=== PATIENT | male | born 1980 | race Caucasian/White ===

== ENCOUNTER 2017-01-17 09:19 | Emergency (ER) | payer MEDICAID ==
[~2017-01-17] VITALS: Ht 165.1 cm; Wt 91.5 kg
[~2017-01-17 09:19] MED LIST: ASPI81TA3 PO; CIPR500T4 PO; GEMF600T PO; MTF1000T PO
[2017-01-17 09:21] VITALS: Ht 165.1 cm; Wt 91.5 kg
[2017-01-17] MEDS ORDERED: DIPHENHYDRAMINE 50 MG INJ IV STA (09:30)
[2017-01-17] MEDS ORDERED: SOD CHLORIDE 0.9% 1,000 ML IV STA (09:30)
[2017-01-17] MEDS ORDERED: METOCLOPRAMIDE 10 MG INJ IV STA (09:30)
--- NOTE | 2017-01-17 10:12 | ERD ---
ER Documentation Chief Complaint Date/Time DATE: 01/17/17 TIME: 10:11 Chief Complaint SEVERE HEADACHE X 3 DAYS ; HAD A STROKE LAST SEPTEMBER 2015 HPI This is a 36-year-old male with history of a right internal capsule stroke, ischemic, proximally 1 year ago who has been noncompliant with his hypertension , diabetes and hyperlipidemia medications for at least 3-4 months. The patient presents with a headache for 3 days. He describes left sided headache that is throbbing, gradual in onset with associated nausea. He denies any sudden onset of pain, no numbness or tingling, no motor weakness. No vision changes. ROS All systems reviewed and are negative except as per history of present illness. Medications Home Meds Active Scripts Acetamin/Butalbital/Caffeine* (Fioricet*) [id number] Tab, 1 TAB PO Q6H Y for PAIN, #30 TAB Prov:STACEY WILLIAMSON MD 01/17/17 Ciprofloxacin Hcl* (Ciprofloxacin Hcl*) 500 Mg Tab, 500 MG PO BID@06,18 for 14 Days, TAB Prov:HALL,MARIO V. DRYER OPERATOR 10/02/15 Aspirin (Aspirin) 81 Mg Chew, 81 MG PO DAILY for 30 Days, TAB Prov:HALL,MARIO V. DRYER OPERATOR 10/02/15 Metformin* (Glucophage*) 1,000 Mg Tablet, 1000 MG PO BID, #60 TAB Prov:HALL,MARIO V. DRYER OPERATOR 10/02/15 Gemfibrozil* (Lopid*) 600 Mg Tab, 600 MG PO BID for 30 Days, TAB Prov:HALL,MARIO V. DRYER OPERATOR 10/02/15 Allergies Allergies: Coded Allergies: No Known Allergy (Unverified , 09/27/15) PMhx/Soc History of Surgery: No Anesthesia Reaction: No Hx Neurological Disorder: No Hx Respiratory Disorders: No Hx Cardiac Disorders: Yes (CVA, HTN) Hx Psychiatric Problems: No Hx Miscellaneous Medical Probl: Yes (binge drinking, DM) Hx Alcohol Use: Yes (socially on weekends beer) Hx Substance Use: No Hx Tobacco Use: No Smoking Status: Never smoker FmHx Family History: No diabetes Physical Exam Vitals Vital Signs Date Time Temp Pulse Resp B/P Pulse Ox O2 Delivery O2 Flow Rate FiO2 01/17/17 09:21 98.6 86 19 169/87 100 Physical Exam General: Well developed, well nourished, no acute distress Head: Normocephalic, atraumatic. Eyes: Pupils equally reactive, EOM intact ENT: Moist mucous membranes Neck: Supple, no lymphadenopathy Respiratory: Lungs clear bilaterally, no distress Cardiovascular: RRR, no murmurs, rubs, or gallops Abdominal: Soft, non-tender, non-distended, no peritoneal signs : Deferred MSK: No edema, no unilateral swelling, 5/5 strength Neurologic: Alert and oriented, moving all extremities, normal speech, no focal weakness, no cerebellar signs, normal rapid alternating movements, sensation is intact. Skin: No rash Psych: Normal mood Results 24 hrs Laboratory Tests Test 01/17/17 10:03 Bedside Glucose 190mg/dL Current Medications Medications (Trade) Dose Ordered Sig/Seymour Route PRN Reason Start Time Stop Time Status Last Admin Dose Admin Sodium Chloride (NS) 1,000 ml @ 1,000 mls/hr Q1H STAT IV 01/17/17 09:30 01/17/17 10:29 DC 01/17/17 09:38 Metoclopramide HCl (Reglan) 10 mg ONCE STAT IV 01/17/17 09:30 01/17/17 09:32 DC 01/17/17 09:39 Diphenhydramine HCl (Benadryl) 25 mg ONCE STAT IV 01/17/17 09:30 01/17/17 09:32 DC 01/17/17 09:38 Procedures/MDM EKG, MONITORS, & DIAGNOSTIC IMAGING: CT brain: IMPRESSION: 1. No evidence of acute intracranial pathology. 2. Consistent with arachnoid cyst again seen. Please see above.. RPTAT: [facility] INTERPRETATION: Accu-Chek less than 200 MEDICAL DECISION MAKING: The patient presents with a gradual onset of headache. The patient's headache is unlikely related to serious etiology. The patient does not exhibit any clinical signs or symptoms, and has no risk factors to suggest headache etiology such as subarachnoid hemorrhage, acute vertebral or carotid dissection , intracranial mass, epidural, subdural hematoma, dural venous sinus thrombosis , giant cell arteritis, or pseudotumor cerebri. Given the timing, location and duration of symptoms I suspect migraine headache. The patient will benefit from fluids Reglan and Benadryl and reassessment. However, the patient does have a history of ischemic stroke. The patient has a nonfocal neurologic exam without signs or symptoms concerning for ischemic stroke currently. The patient will benefit from CT of the brain given his history however. ER COURSE: The patient was strongly urged to restart his medications given his age and significant risk for comorbidities including recurrent stroke. The patient had improved symptomatology and is now asymptomatic. Outpatient follow-up is appropriate. Return precautions were discussed and understood. I kept the patient and/or family informed of laboratory and diagnostic imaging results throughout the emergency room course. DISPOSITION PLAN: We discussed follow up with the patient's primary care doctor within 24 to 48 hours as needed. We also discussed return to the emergency room for worsening symptoms or worsening condition. Outpatient referral: [None required] Discharge Medications: Fioricet Departure Diagnosis: Primary Impression: Headache Headache type: unspecified Headache chronicity pattern: acute headache Intractability: not intractable Qualified Code: R51 - Acute nonintractable headache, unspecified headache type Condition: Stable STACEY WILLIAMSON MD Jan 17, 2017 10:12
--- NOTE | 2017-01-17 11:03 | RADRPT ---
PROCEDURE: CT Brain without contrast. CLINICAL INDICATION: Headaches, left eye pain TECHNIQUE: A CT of the brain was performed utilizing axial imaging from the skull base through the vertex without IV contrast. Multiplanar reformatted images were made. Images were reviewed on a [employer] workstation. The CTDIvol is 43.86 mGy and the DLP is 720.23 mGycm. One or more the following dose reduction techniques were utilized: Automated exposure control, adjus tment of the mA and / or kV according to patient's size, or use of iterative reconstruction techniqu e. COMPARISON: CT brain of 09/27/2015 and MRI brain of 09/27/2015 FINDINGS: There is no intracranial hemorrhage or midline shift. Again seen is an apparent arachnoid cyst in t he anterior right middle cranial fossa which measures approximately 3.6 x 2.1 cm in maximum transver se dimension not significantly changed compared to previous studies. The ventricles and sulci are no rmal in size and configuration. The density of the brain is normal, and the whitney white matter differ entiation appears well-preserved. The visualized paranasal sinuses and osseous structures are gross ly unremarkable. Arterial calcification. There is a nonspecific approximate 1.1 cm oval soft tissue density structure in the subcutaneous fat of the right suboccipital region which also appears to be present on sagittal images on previous MRI. IMPRESSION: 1. No evidence of acute intracranial pathology. 2. Consistent with arachnoid cyst again seen. Please see above.. RPTAT: HJES .Kuhs Schaeffer MD, Date Time Electronically viewed and signed by .Kush Schaeffer MD, on 01/17/2017 11:02 .S/
[2017-01-17] MEDS ORDERED: FIORICET PO (11:28)
[2017-01-17] MEDS ORDERED: MTF1000T PO (11:41)
[2017-01-17] MEDS ORDERED: GEMF600T60 PO (11:41)
[2017-01-17] MEDS ORDERED: ASPI-664 PO (11:41)
== END 2017-01-17 12:00 | disposition home or self-care (01) ==
LOC: E/R 09:19
DX: R51 Headache (principal); I10 Essential (primary) hypertension; E11.9 Type 2 diabetes mellitus without complications; Z79.84 Long term (current) use of oral hypoglycemic drugs; Z79.82 Long term (current) use of aspirin
CPT/HCPCS: 70450; 82962; J1200; J2765; J7030; 36415; 96374; 96375

== ENCOUNTER 2017-10-18 10:43 | Emergency (ER) | END 2017-10-18 15:00 | disposition home or self-care (01) ==